=== PATIENT | male | born 1955 | race African-American/Black ===

== ENCOUNTER 2018-05-16 14:33 | Inpatient (IN) | payer OTHER ==
[~2018-05-16] VITALS: Ht 175.3 cm; Wt 65.8 kg
--- NOTE | ~2018-05-16 | HC ---
[facility] [place] [address] CONSULTATION Name: JASON DEISY FERNÁNDEZ Room #: 462-P ADM IN M.R.#: [id number] Admission: 05/16/18 ������������������ Attend Phys: Charles Ruelas MD Discharge: ������������������ Date of : 59 Report #: [id number] THIS REPORT FOR: //name// CC: Kalpesh Ruelas REASON FOR PRESENTATION: Hypotension. HISTORY OF PRESENT ILLNESS: Not able to obtain this from the patient as the patient is in a dai of the [facility]. He does not communicate frequently. He was brought from his dialysis unit yesterday due to loss of consciousness and subsequent fall per the nursing staff. He is a dialysis patient, was maintained on hemodialysis every Monday, Monday and Monday. Details of the events were not really available. He is known to have schizophrenia, hypertension, status post left BKA. He is maintained on dialysis as I stated in the [facility]. I am being consulted to manage his end-stage renal related issues. MEDICATIONS: Listed on his nursing facility papers include: 1. Midodrine. 2. Sevelamer. 3. Aspirin. 4. Hydralazine. 5. Ranitidine. 6. Mirtazapine. 7. Doxazosin. 8. Haldol. ALLERGIES: 1. LISTED PORCINE CONTAINING PRODUCTS. 2. LATEX. 3. AMITRIPTYLINE. SOCIAL HISTORY: Remote history of smoking per the nursing reports. No drug or alcohol abuse. He resides in a nursing facility. He is in a dai of the [facility]. FAMILY HISTORY: Unobtainable given the patient's mental status. REVIEW OF SYSTEMS: Unobtainable given the patient's mental status. PHYSICAL EXAMINATION: VITAL SIGNS: He is a afebrile with a temperature of 36.4, pulse 66, blood pressure is 128/59. GENERAL CONDITION: He is emaciated and cachectic with complete loss of muscle mass and muscle wasting. HEAD AND NECK: No jugular venous distention. CHEST: No crackles. CARDIOVASCULAR: No rub. [facility] [address] [place] [address] CONSULTATION Name: DEISY DENTON Room #: [address] [place] [address] IN M.R.#: [id number] Admission: 05/16/18 ������������������ Attend Phys: Charles Ruelas MD Discharge: ������������������ Date of : 59 Report #: [id number] ABDOMEN: Soft, nontender. LOWER EXTREMITIES: Left below knee amputation. LABORATORY DATA: Reviewed. Hemoglobin is 12.3. Sodium is 136, potassium is 4.6, BUN is 42, creatinine is 5.4. Chest x-ray negative. Head CT, atrophy is present. ASSESSMENT, IMPRESSION AND PLAN: 1. End-stage renal disease. 2. Hypotension after dialysis. 3. Polypharmacy. 4. Schizophrenia. His incident seems to be related to hypotension after dialysis. Discontinue all of his blood pressure medications. Keep on midodrine for now. Dialysis tomorrow. Working on his placement with the social professionals and telehealth case manager. ��������������������������������������������� ���������������������������������������� By: ��������������������������������������������� 0913 [id number] Yosef Bailey MD /michela
[~2018-05-16 14:33] MED LIST: APAP500 PO; ASPIR 8181 MG PO; CARDURA4 MG PO; CARVEDILOL12.5 MG PO; CENTRUM SILVER1 EAC4 PO; CLOTRIMAZOLE 1%15 G1 TOP; DEPAKOTE 250MG250 M1 PO; DIPHENHYDRAM50 MG/M2 IM; FOLIC ACID1 MG PO; HALOPERIDOL5 MG/1 M1 IM; HYDRALAZINE 10M10 MG PO; IRON325 PO; KETOCONAZOLE60 GM TP; NORVASC10 MG PO; RANITIDINE 150150 M1 PO; REMERON15 MG PO; RISAMINE OINTM113 GM TP; RISPERDAL2 MG PO; SILTUSSIN100 MG/5 M PO; VITAMIN A TP; VITAMIN B-12500 MCG PO; [UNRECOGNIZED DRUG - OTHER] TP
[2018-05-16 14:34] VITALS: BP 84/54
[2018-05-16] MEDS ORDERED: MIDODRINE HCL 55 M1 PO (14:43)
[2018-05-16] MEDS ORDERED: RENVELA800 MG PO ×2 (14:44→20:58)
[2018-05-16] MEDS ORDERED: LATUDA20 MG PO ×2 (14:45→20:55)
[2018-05-16] MEDS ORDERED: LIPITOR 20 MG T20 M1 PO (14:46)
--- NOTE | 2018-05-16 17:07 | NUR ---
PUBLIC SERVICED BY DENISE CARROLL, DEPUTY, [facility] PUBLIC ADMINISTRATION OFFICE AT THIS TIME. RECEIVED CONSENT FOR FULL TREATMENTS NEEDED JUDEGED BY EDP AND/OR PHYSICIANS INVOLVED IN PT CARE. CONTACT NUMBER: [phone], ASK FOR A PAGE FOR THE PUBLIC ADMIN OFFICE DEPUTY
[2018-05-16 17:35] LABS: ABSOLUTE NEUTROPHILS 7.8 thou/uL (1.4-8.2); BASOPHILS 0.3 % (0.0-2.0); EOSINOPHILS 0.7 % (0.0-3.0); HEMATOCRIT 38.3 % (42.0-52.0); HEMOGLOBIN 12.3 gm/dL (14.0-18.0); LYMPHOCYTES 6.8 % (24.0-44.0); MCHC 32.1 g/dL (28.0-37.0); MCV 84.2 fL (80.0-100.0); MONOCYTES 8.1 % (1.0-8.0); PLATELET COUNT 185 thou/uL (150-400); POLYS 84.1 % (36.0-66.0); RBC 4.55 mil/uL (4.50-6.00); RDW 15.1 % (10.5-14.5); WBC 9.2 thou/uL (4.0-11.0)
[2018-05-16 17:59] LABS: ANION GAP 9 mmol/L (7-16); BUN 31 mg/dL (7-18); CALCIUM 9.6 mg/dL (8.5-10.1); CHLORIDE 98 mmol/L (98-107); CO2 28 mmol/L (21-32); CREATININE 4.4 mg/dL (0.7-1.3); GLUCOSE 147 mg/dL (74-106); POTASSIUM 3.8 mmol/L (3.5-5.1); SODIUM 135 mmol/L (136-145)
[2018-05-16 18:03] LABS: APTT 23.3 Seconds (24.5-32.8)
[2018-05-16 18:04] LABS: URINE BILIRUBIN NEGATIVE (Negative); URINE BLOOD 3+ (Negative); URINE CLARITY CLEAR; URINE COLOR YELLOW; URINE GLUCOSE-RANDOM* NEGATIVE (Negative); URINE KETONES NEGATIVE (Negative); URINE NITRITE-REFLEX NEGATIVE (Negative); URINE PROTEIN (DIPSTICK) 2+ (Negative); URINE UROBILINOGEN 0.2 E.U./dl (0.2-1.0)
[2018-05-16 18:05] LABS: URINE LEUKOCYTES-REFLEX 2+ (Negative)
[2018-05-16 18:07] LABS: ALBUMIN 3.4 g/dL (3.4-5.0); SGOT 12 U/L (15-37); SGPT 16 U/L (30-65); TOTAL BILIRUBIN 0.2 mg/dL (<0.1-1.0); TOTAL PROTEIN 8.8 g/dL (6.4-8.2); TROPONIN-I <0.06 ng/mL (<0.06)
[2018-05-16 18:15] LABS: SQUAMOUS 0-3 Few /LPF (0-3); URINE RBC >20 Many /HPF (0-2)
[2018-05-16 18:16] LABS: CASTS None Seen /LPF (None Seen); CRYSTALS None Seen /LPF (None Seen)
[2018-05-16 18:17] LABS: TRANSITIONAL EPITHEL CELL 4-10 Moderate /LPF (None Seen); URINE WBC-REFLEX 6-15 Few /HPF (0-5)
[2018-05-16 18:18] LABS: AMORPHOUS URATES Moderate /LPF (None Seen)
[2018-05-16 18:19] LABS: D-DIMER 1.25 ug/mLFEU (0.19-0.50)
[2018-05-16 19:40] VITALS: BP 91/47
[2018-05-16 20:13] VITALS: BP 101/62
[2018-05-16] MEDS ORDERED: RISPERDAL2 MG PO (20:50)
[2018-05-16 20:54] VITALS: BP 120/43
[2018-05-16] MEDS ORDERED: VITAMIN D2000 UNIT PO (20:59)
[2018-05-16] MEDS ORDERED: NORCO 5-325 TA1 EACH PO (21:00)
--- NOTE | 2018-05-16 23:48 | NUR ---
ADMITTED FROM ER UNDER 'S CARE. PHYLICIA CRAVEN COVERING FOR SAW THE PT AT THE BEDSIDE. AXOX2. SLURRED SPEECH FROM PREVIOUS STROKE. NEW IV PUT IN L FA. PT HEMODIALYSIS PT. JAYNE AV FISTULA. POSITIVE BRUIT/THRILL. LBKA HEALED AND OPEN TO AIR. L BUTTOCK SKIN TEAR. SCROTUM REDNESS. PICTURE TAKEN AND BARRIER CREAN APPLIED. R FOOT SEVERE DRYNESS. CREAM APPLIED TO FOOT, TELE MONITOR APPLIED. DRY COUGH NOTED WITHOUT OUTPUT. BP UPON ARRIVAL ON THE UNIT. VSS. BP AT 120 SBP. ROCHEPHINE STARTED PER MD ORDER. 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 PT CAME WITH MONEY IN R SOCK, REFUSED TO SEND THEM TO SECURITY. SAYS IT'S ABOUT 20DOLLARS. WILL TRY TO CONVINCE PT TO SEND MONEY DOWN TO SECURITY. NO S/S ACUTE DISTRESS NOTED OR REPORTED AT THIS TIME. WILL CONT TO MONITOR FOR ANY CHANGES IN CONDITION.
[2018-05-17 04:39] VITALS: BP 128/59
[2018-05-17 06:06] LABS: CALCIUM 9.3 mg/dL (8.5-10.1); POTASSIUM 4.6 mmol/L (3.5-5.1)
[2018-05-17 06:10] LABS: CREATININE 5.4 mg/dL (0.7-1.3)
[2018-05-17 07:46] VITALS: BP 104/45
--- NOTE | 2018-05-17 07:52 | EKG ---
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 : 1955 Requested By: Ashley Pitts Order Number: [id number] MD: Monster Calhoun Measurements Intervals [place] Rate: 72 P: 49 NV: 182 QRS: 61 QRSD: 99 T: 67 QT: 394 QTc: 432 Interpretive Statements Sinus rhythm Left ventricular hypertrophy ST elevation, consider early repolarization Compared to ECG 03/26/2015 12:47:57 No significant change was found Electronically Signed On 05-17-2018 7:52:05 CDT by Monster Calhoun [email or web address] ��������������������������������������������� <ELECTRONICALLY SIGNED> ���������������������������������������� By: Monster Calhoun MD, [facility] ��������������������������������������������� 05/17/18 0752 [id number] Monster Calhoun MD, [facility] /EPI
--- NOTE | 2018-05-17 11:29 | NUR ---
WOUND CONSULT: PT. WAS SEEN FOR SKIN EVAULATION. PT. HAS SIGNIFICANT MOISTURE ASSOCIATED DERMATITIS TO HIS SACRAL/GLUETAL REGION. PT. SKIN IS VERY FRIABLE IN THIS REGION AND UPON CLEANSING AND ASSESMENT PT. SKIN BEGIN TO COME OFF. PT. REPORTS THAT THIS AREA IS VERY PAINFUL DUE TO THE EXCORATION THAT HE HAS AND MOVES AND GRIMACES IN PAIN WITH WOUND CARE. RECOMMENDATIONS: WOUND CARE TO SACRAL/GLUTEAL REGION: GENTLY CLEANSE AREA WITH WARM SOAP AND WATER, APPLY MOISTURE BARRIER CREAM, LEAVE OPEN TO AIR, COMPLETE CARES DAILY AND PRN. NO BRIEFS IN BED ONLY ONE INCONTIENCE PAD IN THE BED TURN Q2 HOURS KEEP PT. OFF WOUND MUCH POSSIBLE PT. AND STAFF NURSE WERE INSTRUCTED ON PLAN OF CARE.
--- NOTE | 2018-05-17 14:54 | NUR ---
PT ADMITTED RELATED TO POST FALL/HYPOTENSION. CM REVIEWED CHART AND SPOKE [facility] CARE TEAM. 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 HE INDICATED THAT HE ANTICIAPTED PT RETURNING TO [facility] ONCE MEDICALLY STABLE. PT IS A DIALYSIS PT AND GOES MWF. PT USES A WHEELCHAIR AT THE FACILITY. CM TO FOLLOW INDICATED WITH DC PLANNING.
[2018-05-17 14:58] VITALS: BP 95/44
--- NOTE | 2018-05-17 16:00 | NUR ---
VSS-AFEBRILE. FLAT AFFECT, OCCASIONALLY ANSWERS QUESTIONS. LUNGS CLEAR/DIMINISHED IN ALL [place]VALLE BILATERALLY. ANURIC, NO BM THIS SHIFT. COMPLIANT WITH TAKING ORAL MEDICATIONS, NO DIFFICULTY SWALLOWING. NO REPORTS OF PAIN. WAS ABLE TO FEED SELF WITH TRAY SET UP. NO REPORTED N/V. CHRIS AREA CLEANSED MULTIPLE TIMES, BARRIER CREAM APPLIED FOR COMFORT.
[2018-05-17 19:35] VITALS: BP 93/41
--- NOTE | 2018-05-18 02:21 | NUR ---
ASSUMED CARE AT 1900. AXOX2. ROCEPHINE COMPLETED. REPOSITION FREQUENT WITH APPLIANCE OF THE BARRIER CREAM. NO S/S ACUTE DISTRESS NOTED OR REPORTED AT THIS TIME. WILL CONT TO MONITOR FOR ANY CHANGES IN CONDITION.
[2018-05-18 04:18] VITALS: BP 140/67
[2018-05-18 08:00] VITALS: BP 124/73
[2018-05-18 15:00] VITALS: BP 133/85
--- NOTE | 2018-05-18 15:39 | NUR ---
DISCHARGE PLANNING. PATIENT RESIDES AT [facility]. PLAN IS FOR PATIENT TO RETURN TO [facility] ONCE MEDICALLY READY. CLINICAL INFORMATION FAXED TO ADAN MCNAMARA DON/BIN CLEANER. WILL FACILITATE DISCHARGE ONCE PATIENT IS MEDIALLY READY AND DISCHARGE ORDERS RECEIVED. FOLLOWING TO ASSIST WITH DC NEEDS.
[2018-05-18] MEDS ORDERED: CEFDINIR300 MG PO (15:43)
--- NOTE | 2018-05-18 16:37 | NUR ---
REC D/C ORDERS, PT HAS NOW RETURNED FROM DIALYSIS, CM ARRANGING RIDE TO [facility]. CALLED TO GIVE REPORT [phone], REC , LEFT NURSES PHONE NUMBER AND PT'S NAME FOR THEM TO CALL FOR REPORT
--- NOTE | 2018-05-18 16:55 | NUR ---
GAVE REPORT TO GABY AT FACILITY AND FAXED PT'S MEDS
== END 2018-05-18 20:13 | DRG 312 ==
LOC: ER 14:33 → EROBS 19:13 → 4W 19:13
PROVIDERS: Nurse Practitioner Family; Physician Assistant; ADMIT Internal Medicine
PROC: 5A1D70Z Performance of Urinary Filtration, Intermittent, Less than 6 Hours Per Day (ICD-10-PCS; principal; 2018-05-18)
DX: I95.3 Hypotension of hemodialysis (principal); N18.6 End stage renal disease; N39.0 Urinary tract infection, site not specified; I12.0 Hypertensive chronic kidney disease with stage 5 chronic kidney disease or end stage renal disease; G93.40 Encephalopathy, unspecified; I69.354 Hemiplegia and hemiparesis following cerebral infarction affecting left non-dominant side; K21.9 Gastro-esophageal reflux disease without esophagitis; F32.9 Major depressive disorder, single episode, unspecified; I95.9 Hypotension, unspecified; F20.9 Schizophrenia, unspecified; E78.5 Hyperlipidemia, unspecified; I73.9 Peripheral vascular disease, unspecified; D63.8 Anemia in other chronic diseases classified elsewhere; E55.9 Vitamin D deficiency, unspecified; E53.8 Deficiency of other specified B group vitamins; Z89.442 Acquired absence of left ankle; Z88.8 Allergy status to other drugs, medicaments and biological substances; Z91.040 Latex allergy status; Z87.891 Personal history of nicotine dependence; I95.1 Orthostatic hypotension
CPT/HCPCS: 10045; 32100

== ENCOUNTER 2019-05-01 17:12 | Emergency (ER) | payer OTHER ==
[~2019-05-01] VITALS: Ht 185.4 cm; Wt 68.0 kg
[~2019-05-01 17:12] MED LIST changes: +CEFDINIR300 MG PO; +LATUDA20 MG PO; +LIPITOR 20 MG T20 M1 PO; +MIDODRINE HCL 55 M1 PO; +NORCO 5-325 TA1 EACH PO; +RENVELA800 MG PO; +VITAMIN D2000 UNIT PO
[2019-05-01 17:14] VITALS: BP 122/77
[2019-05-01 18:24] LABS: HEMOGLOBIN 9.8 gm/dL (14.0-18.0); MCH 24.2 pg (26.0-34.0); MCHC 30.6 g/dL (28.0-37.0); MCV 78.9 fL (80.0-100.0); PLATELET COUNT 363 thou/uL (150-400); RBC 4.06 mil/uL (4.50-6.00); WBC 14.4 thou/uL (4.0-11.0)
[2019-05-01 18:37] LABS: CALCIUM 9.4 mg/dL (8.5-10.1); CREATININE 5.4 mg/dL (0.7-1.3); POTASSIUM 4.7 mmol/L (3.5-5.1)
[2019-05-01 18:43] LABS: ALBUMIN 2.6 g/dL (3.4-5.0); TOTAL BILIRUBIN 0.2 mg/dL (<0.1-1.0); TOTAL PROTEIN 8.5 g/dL (6.4-8.2)
[2019-05-01 19:14] LABS: ABSOLUTE NEUTROPHILS 12.4 thou/uL (1.4-8.2); ANISOCYTOSIS 2+; HYPOCHROMASIA 1+; MICROCYTES 1+
[2019-05-01 21:39] LABS: URINE BILIRUBIN NEGATIVE (Negative); URINE BLOOD 2+ (Negative); URINE CLARITY SL CLOUDY; URINE COLOR YELLOW; URINE GLUCOSE-RANDOM* NEGATIVE (Negative); URINE KETONES NEGATIVE (Negative); URINE NITRITE-REFLEX NEGATIVE (Negative); URINE PROTEIN (DIPSTICK) 2+ (Negative); URINE UROBILINOGEN 0.2 E.U./dl (0.2-1.0)
[2019-05-01 21:54] LABS: URINE LEUKOCYTES-REFLEX 3+ (Negative)
[2019-05-01 22:20] LABS: CASTS None Seen /LPF (None Seen); CRYSTALS None Seen /LPF (None Seen); MUCUS 0-3 Light strn/LPF (None Seen); SQUAMOUS 4-10 Moderate /LPF (0-3); URINE RBC 3-10 Few /HPF (0-2)
[2019-05-01] MEDS ORDERED: KEFLEX500 M1 PO (22:20)
[2019-05-01] MEDS ORDERED: NORCO 5-325 TA1 EAC1 PO (22:20)
== END 2019-05-01 23:39 | disposition home or self-care (01) ==
LOC: ER 17:12
PROVIDERS: Physician Assistant
DX: S42.212A Unspecified displaced fracture of surgical neck of left humerus, initial encounter for closed fracture (principal); I13.11 Hypertensive heart and chronic kidney disease without heart failure, with stage 5 chronic kidney disease, or end stage renal disease; N18.6 End stage renal disease; D64.9 Anemia, unspecified; N39.0 Urinary tract infection, site not specified; K21.9 Gastro-esophageal reflux disease without esophagitis; Z87.891 Personal history of nicotine dependence; Z91.040 Latex allergy status; Z88.8 Allergy status to other drugs, medicaments and biological substances; Z99.2 Dependence on renal dialysis; Z91.018 Allergy to other foods; W06.XXXA Fall from bed, initial encounter; Y93.89 Activity, other specified; Y92.128 Other place in nursing home as the place of occurrence of the external cause; Y99.8 Other external cause status

== ENCOUNTER 2019-05-15 12:27 | Inpatient (IN) | payer OTHER ==
[~2019-05-15] VITALS: Ht 182.9 cm; Wt 65.8 kg
[~2019-05-15 12:27] MED LIST changes: +KEFLEX500 M1 PO; +NORCO 5-325 TA1 EAC1 PO
[2019-05-15 14:57] LABS: HEMATOCRIT 33.9 % (42.0-52.0); HEMOGLOBIN 10.2 gm/dL (14.0-18.0); MCH 24.1 pg (26.0-34.0); MCHC 30.1 g/dL (28.0-37.0); PLATELET COUNT 295 thou/uL (150-400); RBC 4.24 mil/uL (4.50-6.00); RDW 17.7 % (10.5-14.5); WBC 7.4 thou/uL (4.0-11.0)
[2019-05-15 15:02] LABS: URINE BILIRUBIN NEGATIVE (Negative); URINE BLOOD 3+ (Negative); URINE COLOR YELLOW; URINE GLUCOSE-RANDOM* NEGATIVE (Negative); URINE KETONES NEGATIVE (Negative); URINE LEUKOCYTES-REFLEX TRACE (Negative); URINE NITRITE-REFLEX NEGATIVE (Negative); URINE PROTEIN (DIPSTICK) 2+ (Negative); URINE SPECIFIC GRAVITY 1.015 (1.005-1.035); URINE UROBILINOGEN 0.2 E.U./dl (0.2-1.0)
[2019-05-15 15:03] LABS: URINE CLARITY CLOUDY
[2019-05-15 15:05] LABS: SQUAMOUS 0-3 Few /LPF (0-3)
[2019-05-15 15:06] LABS: BACTERIA-REFLEX None Seen /HPF (None Seen); CRYSTALS None Seen /LPF (None Seen); URINE RBC >20 Many /HPF (0-2); URINE WBC-REFLEX None Seen /HPF (0-5)
[2019-05-15 15:07] LABS: CALCIUM 9.4 mg/dL (8.5-10.1); CREATININE 6.2 mg/dL (0.7-1.3); POTASSIUM 4.9 mmol/L (3.5-5.1)
[2019-05-15 15:11] LABS: AMP/METHAMP Negative (Negative); BARBITURATES Negative (Negative); BENZODIAZEPINES Negative (Negative); COCAINE Negative (Negative); METHADONE Negative (Negative); OPIATES POSITIVE (Negative); PCP Negative (Negative)
[2019-05-15 15:13] LABS: ALBUMIN 2.8 g/dL (3.4-5.0); TOTAL BILIRUBIN 0.3 mg/dL (<0.1-1.0); TOTAL PROTEIN 8.3 g/dL (6.4-8.2)
[2019-05-15 15:17] LABS: LIPASE 520 U/L (73-393); MAGNESIUM 2.5 mg/dL (1.8-2.4); TROPONIN-I <0.06 ng/mL (<0.06)
[2019-05-15 15:37] LABS: ABSOLUTE NEUTROPHILS 5.7 thou/uL (1.4-8.2); ANISOCYTOSIS 1+; PLATELET ESTIMATE NORMAL
[2019-05-15 16:24] VITALS: BP 125/83
--- NOTE | 2019-05-15 16:29 | EKG ---
[facility] [place] [place] [address] ELECTROCARDIOGRAM REPORT Name: GOMEZ DEISY FERNÁNDEZ Room #: 170-11 ADM IN M.R.#: [id number] Admission: 05/15/19 Attend Phys: Charles Ruelas MD Discharge: Date of : 59 Report #: [id number] THIS REPORT FOR: cc: Kalpesh Barney MD, Dennis R MD Couchonnal, Luis F. MD ~ THIS REPORT FOR: //name// [facility] ED Test Date: 2019-05-15 Test Time: 13:45:51 Pat Name: DEISY FERNÁNDEZ Department: Room: 170 Gender: M Hand Miter Operator: : 1955 Requested By: Ashley Pitts Order Number: [id number] MD: Gamal Owens Measurements Intervals [place] Rate: 84 P: 51 LA: 167 QRS: 74 QRSD: 107 T: 78 QT: 379 QTc: 449 Interpretive Statements Sinus rhythm Probable left ventricular hypertrophy Minimal ST elevation, inferior leads Baseline wander in lead(s) V1 Compared to ECG 05/16/2018 17:24:37 No significant changes Electronically Signed On 05-15-2019 16:28:12 CDT by Gamal Owens [email or web address] <ELECTRONICALLY SIGNED> By: Gamal Owens MD 05/15/19 1628 1345 1345 Gamal Owens MD /EPI
[2019-05-15 16:42] VITALS: BP 111/81
[2019-05-15 17:15] VITALS: BP 145/44
--- NOTE | 2019-05-15 19:29 | NUR ---
63 YO ADMITTED FROM ED TO RM 357. A&OX2. IV IN L EJ. L ARM IS IS IN A BRACE. WAS ABLE TO TELL ME IT GOT BROKE 2 WEEKS AGO. Polina MARK NOTED. DIALYSIS NURSE TODAY STATED THAT HIS LOC HAS CHANGED LAST 3-4 WEEKS. WAS ABLE TO FEED [place] WITH RIGHT HAND. FISTULA NOTED TO JAYNE. PT IS A POOR HISTORIAN. ORIENTED PT TO CALL LIGHT. BED ALARM IS ON
[2019-05-15 19:40] VITALS: BP 141/111
[2019-05-15 23:55] VITALS: BP 128/86
[2019-05-16 03:40] VITALS: BP 121/75
--- NOTE | 2019-05-16 05:30 | NUR ---
ROUNDED ON PT ON HOURLY BASIS. DURING ASSESSMENT, PT WAS NON VERBAL. TOOK PILL WITH APPLESAUCE AND CAN USE HIS RIGHT HAND TO FEED HIMSELF. PT WAS INCONTINENT X2 URINE OVER SHIFT. PT HAS WOUNDS THAT HAVE HEALED ON TOP OF BOTTOM ON LEFT AND RIGHT SIDE. LEFT BROKE ARM IMMOBILIZED, AND L BKA NO SIGNS OF WOUNDS AND ELEVATED WITH A PILLOW. ORDERED LOW LOSS AIR PUMP DUE TO BEDREST AND INCONTINENCE. VSS AND TELE SHOWS SR.
[2019-05-16 05:34] LABS: ABSOLUTE NEUTROPHILS 4.6 thou/uL (1.4-8.2); BASOPHILS 0.5 % (0.0-2.0); EOSINOPHILS 3.1 % (0.0-3.0); HEMATOCRIT 31.1 % (42.0-52.0); HEMOGLOBIN 9.5 gm/dL (14.0-18.0); LYMPHOCYTES 20.1 % (24.0-44.0); MCHC 30.5 g/dL (28.0-37.0); MCV 78.8 fL (80.0-100.0); MONOCYTES 8.3 % (1.0-8.0); PLATELET COUNT 325 thou/uL (150-400); RBC 3.95 mil/uL (4.50-6.00); RDW 17.7 % (10.5-14.5); WBC 6.7 thou/uL (4.0-11.0)
[2019-05-16 05:58] LABS: ALBUMIN 2.6 g/dL (3.4-5.0); CALCIUM 9.9 mg/dL (8.5-10.1); CREATININE 6.9 mg/dL (0.7-1.3); MAGNESIUM 2.5 mg/dL (1.8-2.4); PHOSPHORUS 5.1 mg/dL (2.5-4.9); POTASSIUM 4.7 mmol/L (3.5-5.1)
[2019-05-16 07:06] VITALS: BP 121/75
--- NOTE | 2019-05-16 14:19 | NUR ---
REC considering adding full Renal diet for diet order. Current diet only restricts Na and K+. K+ WNL at 4.7 today, Phos elevated at 5.1. Do note pt is on phosphate binders.
--- NOTE | 2019-05-16 14:43 | NUR ---
INITIAL ASSESSMENT: Received consult. DALTON reviewed chart and spoke with nursing and attending physician. Pt was admitted from [facility] due to pneumonia. Pt is in droplet isolation for Influenza B. Per chart, pt lives at [facility]. Pt is a dai of the state through [place], [place]. DALTON left voice message for public practice administrator's office ([phone]) to notify of pt's hospitalization. PT with hx of schizophrenia/ESRD/left BKA. Pt goes to diaysis at [facility] on at 0945. DALTON spoke with Leatha at [facility] to confirm pt's dialysis schedule. DALTON spoke with staff at [facility], who states that pt is normally w/c bound. Erik lift is used to transfer pt. Plan is for pt to return to [facility] when medically stable. DALTON is following to assist as needed with discharge planning.
[2019-05-16 15:56] VITALS: BP 166/103
[2019-05-16 19:54] VITALS: BP 148/104
[2019-05-17 03:43] VITALS: BP 139/98
--- NOTE | 2019-05-17 05:56 | NUR ---
PT IS ALERT BUT FLAT, STILL REFUSING TO TALK. HE WILL GIVE A THUMBS UP WHEN ASKED IF HE WANTS YOGURT OR APPLESAUCE. FOLLOWING POC WITH Q2 TURNS AND LOW LOSS AIR MATTRESS IN PLACE. ISOLATION AND FALL PRECAUTIONS BEING FOLLOWED. PT IS SCHEDULED FOR DIALYSIS TODAY 05/16. HOURLY ROUNDING.
[2019-05-17 07:49] VITALS: BP 122/54
--- NOTE | 2019-05-17 08:29 | HC ---
[facility] [place] [address] CONSULTATION Name: DEISY DENTON Room #: 357-P ADM IN M.R.#: [id number] Admission: 05/15/19 Attend Phys: Charles Ruelas MD Discharge: Date of : 59 Report #: [id number] THIS REPORT FOR: cc: Kalpesh Barney MD, Dennis R MD Al-Absi,Yosef Arora MD ~ CC: Kalpesh Ruelas DATE OF SERVICE: 05/16/2019 REASON FOR CONSULTATION: End-stage renal disease. REASON FOR PRESENTATION: Mental status changes. HISTORY OF PRESENT ILLNESS: This is a 63-year-old with past medical history of CVA, schizophrenia, end-stage renal disease, left below knee amputation. He was sent from his dialysis center yesterday because the nurses were concerned that he was not acting right. The patient is tested positive for influenza. He was admitted to further evaluate his mental status. Workup so far had been nonrevealing other than some abnormal CT finding of his adrenal glands and his gastrointestinal system. I was consulted to manage his end-stage renal disease. ALLERGIES: PORCINE CONTAINING PRODUCTS. PAST MEDICAL HISTORY: 1. Schizophrenia. 2. End-stage renal disease. 3. Hypertension. 4. Anemia. PAST SURGICAL HISTORY: Right AV fistula. MEDICATIONS: 1. Renvela. 2. Hydrocodone. 3. Midodrine. 4. Atorvastatin. 5. Depakote. FAMILY HISTORY: Hypertension. SOCIAL HISTORY: Resides in a life care facility. No reported drug or alcohol abuse. REVIEW OF SYSTEMS: [facility] [address] [place] [address] CONSULTATION Name: JASON JOLENEDEISY Room #: 357-P ADM IN M.R.#: [id number] Admission: 05/15/19 Attend Phys: Charles Ruelas MD Discharge: Date of : 59 Report #: [id number] GENERAL: No fever or chills. CARDIOVASCULAR: No chest pain or palpitation. PULMONARY: No cough or hemoptysis. GASTROINTESTINAL: No nausea or vomiting. GENITOURINARY: No frequency, no urgency. NEUROLOGICAL: As per the history of present illness. PHYSICAL EXAMINATION: VITAL SIGNS: Temperature is 37, blood pressure is 121/75. HEAD AND NECK: No jugular venous distention. CHEST: No crackles. CARDIOVASCULAR: Regular with no rub detected. ABDOMEN: Soft and nontender. EXTREMITIES: Lower extremities, left below-knee amputation. LABORATORY DATA: Reviewed. Hemoglobin 9.5. Sodium is 133, BUN is 50, creatinine is 6.9. Lipase is mildly elevated at 520. Chest CT and abdominal CT were reviewed. He had what seems to be a large left adrenal mass. ASSESSMENT, IMPRESSION, AND PLAN: 1. End-stage renal disease. 2. Influenza B. 3. Acute mental status changes per his nursing facility, resolved. 4. Adrenal mass. 5. We will continue to support the patient with hemodialysis every Monday, Monday and Monday. 6. Treatment for his influenza. 7. Other care aspects are being handled by the primary team. <ELECTRONICALLY SIGNED> By: Yosef Bailey MD 05/17/19 0829 0713 0750 Yosef Bailey MD /nt
--- NOTE | 2019-05-17 15:31 | NUR ---
DALTON reviewed chart and spoke with nursing and attending physician. Pt may be ready for discharge back to [facility] over the weekend. DALTON spoke with Mariam at [facility] to notify of possible weekend discharge. Prem states they are able to accept pt over the weekend. DALTON spoke with Renata at [facility] Public Hand Printed Circuit Board Assembler's Office to notify of discharge. Consent for discharge provided. DALTON contacted [facility] to notify [facility] that pt may resume regular outpatient dialysis on Monday. Multiple attempts to contact [facility] were unsuccessful. Final discharge orders/summary will need to be faxed to [facility] and [facility] when available. [facility] can be scheduled when pt is ready for discharge. DALTON is available to assist should needs arise. [facility]-- (facility) [phone] (Mariam) [facility]--
[2019-05-17 15:42] VITALS: BP 138/97
[2019-05-17 18:54] VITALS: BP 119/103
[2019-05-18 04:20] VITALS: BP 127/88
--- NOTE | 2019-05-18 05:13 | NUR ---
Pt was nonverbal during this shift, pt only expresses himself via nodding or pointing. Pt was receptive on receiving medication and was cooperative throughout treatment. Pt turned Q2H but patient leans towards the R side continuously, this raises concerns for skin breakdown. Pt passed urine and BM this evening. Pt in low air loss machine hooked up and alternating pressure on sides. Will continue to monitor and administer appropriate medication.
[2019-05-18 08:34] VITALS: BP 100/67
[2019-05-18 15:34] VITALS: BP 95/52
[2019-05-18 20:45] VITALS: BP 118/79
[2019-05-19 04:24] VITALS: BP 116/75
[2019-05-19 05:15] LABS: HEMATOCRIT 31.2 % (42.0-52.0); HEMOGLOBIN 9.5 gm/dL (14.0-18.0); MCH 23.9 pg (26.0-34.0); MCHC 30.3 g/dL (28.0-37.0); RBC 3.96 mil/uL (4.50-6.00); RDW 17.7 % (10.5-14.5); WBC 7.4 thou/uL (4.0-11.0)
[2019-05-19 05:31] LABS: CALCIUM 10.2 mg/dL (8.5-10.1); CREATININE 6.6 mg/dL (0.7-1.3); POTASSIUM 5.8 mmol/L (3.5-5.1)
[2019-05-19 07:34] VITALS: BP 88/14
--- NOTE | 2019-05-19 10:29 | NUR ---
VASCULAR ACCESS NURSE CONSULTED TO REPLACE EJ. SPOKE TO NANCY FELIX AND AND HE SUGGESTED TO WAIT UNTIL HE CONFIRMS THIS WITH THE MD IT MAY NOT BE NECESSARY- WILL RETURN TO PLACE A NEW EJ IF NECESSARY, ON HOLD AT THIS TIME
[2019-05-19 15:28] VITALS: BP 138/97
--- NOTE | 2019-05-19 18:44 | NUR ---
CONT TO REST IN BED AT THIS TIME. RESPIRATIONS ARE NON LABORED.INCONT OF BOWEL AN BLADDER. KEPT CLEAN AND DRY. POSSIBLY DISCHARGED IN AM. WILL CONT WIHT PLAN OF CARE.
--- NOTE | 2019-05-19 18:45 | NUR ---
SPOKE WITH DR MARSHALL ABOUT IV. STATES HE IS GOING TO CHANGE IV ABT TO PO.
[2019-05-19 19:30] VITALS: BP 99/57
[2019-05-20 02:53] VITALS: BP 111/80
--- NOTE | 2019-05-20 03:45 | NUR ---
Patient making progress towards outcome goals. Oxygenation optimal on room air. Vital signs and rhythm stable. Antibiotics changed to oral. Discharge plans todays to [facility] after dialysis. High fall risks, fall precautions in place.
[2019-05-20 07:37] VITALS: BP 112/65
[2019-05-20] MEDS ORDERED: IPRAT-ALBUT 0.5-3 ML INH (10:38)
[2019-05-20] MEDS ORDERED: ACETAMINOPHEN325 M1 PO (10:38)
[2019-05-20] MEDS ORDERED: MIRALAX17 GM PO (10:38)
[2019-05-20] MEDS ORDERED: LEVAQUIN 750 M750 MG PO (10:38)
[2019-05-20] MEDS ORDERED: MUCINEX600 MG PO (10:38)
[2019-05-20] MEDS ORDERED: TAMIFLU30 MG PO (10:38)
[2019-05-20] MEDS ORDERED: PULMICORT0.5 MG/21 INH (10:38)
--- NOTE | 2019-05-20 11:44 | NUR ---
Assumed pt care at 7am.Pt in bed resting without c/o. Assessment completed. Vss.Pt fed at breakfast and tolerated meds.No choking noted.Dr Ruelas here,dc order noted.Pt will dc to [facility] after hemodialysis today.Chart compy and transport to be arranged by case filler.Pt still in droplet isolation. Will continue to monitor.
--- NOTE | 2019-05-20 14:35 | NUR ---
DISCHARGE NOTE: DALTON reviewed chart and spoke with nursing and attending physician. Pt is medically stable to discharge back to [facility] today after dialysis. DALTON faxed finalized discharge orders to [facility], [facility] and [facility] office for review. Pt having dialysis now. DALTON arranged stretcher [place] transportataion for 2023-2029 through [facility]. Director of Case Mgmt approved transportation. DALTON spoke with Ari Lamar at the ID office, who gave consent for discharge. DALTON spoke with Vanda at [facility] to notify of discharge time. [facility] confirms they are able to accept pt. Nursing report to be called to [facility]. DALTON spoke with [facility] staff to inform that pt will resume his regular outpatient dialysis on , 05/21. Chart copy requested. Nursing provided with number to call report. No additional SW needs identified at this time, but is available to assist should needs arise.
[2019-05-20 15:51] VITALS: BP 103/65
== END 2019-05-20 18:33 | DRG 177 ==
LOC: ER 12:27 → EROBS 15:51 → 3W 16:58
PROVIDERS: Emergency Medicine; Nurse Practitioner; Physician Assistant; ADMIT Internal Medicine
PROC: 5A1D70Z Performance of Urinary Filtration, Intermittent, Less than 6 Hours Per Day (ICD-10-PCS; principal; 2019-05-17)
PROC: 5A1D70Z Performance of Urinary Filtration, Intermittent, Less than 6 Hours Per Day (ICD-10-PCS; 2019-05-20)
DX: J10.01 Influenza due to other identified influenza virus with the same other identified influenza virus pneumonia (principal); N18.6 End stage renal disease; J15.8 Pneumonia due to other specified bacteria; I69.354 Hemiplegia and hemiparesis following cerebral infarction affecting left non-dominant side; I12.0 Hypertensive chronic kidney disease with stage 5 chronic kidney disease or end stage renal disease; J98.11 Atelectasis; G93.40 Encephalopathy, unspecified; F32.9 Major depressive disorder, single episode, unspecified; F20.9 Schizophrenia, unspecified; I73.9 Peripheral vascular disease, unspecified; E78.5 Hyperlipidemia, unspecified; I95.1 Orthostatic hypotension; K59.00 Constipation, unspecified; E27.9 Disorder of adrenal gland, unspecified; K21.9 Gastro-esophageal reflux disease without esophagitis; Z87.891 Personal history of nicotine dependence; Z89.442 Acquired absence of left ankle; Z91.040 Latex allergy status; Z88.8 Allergy status to other drugs, medicaments and biological substances; Z91.09 Other allergy status, other than to drugs and biological substances; Z99.2 Dependence on renal dialysis; Z79.899 Other long term (current) drug therapy
CPT/HCPCS: 10879; 32100

== ENCOUNTER 2020-02-01 13:52 | Emergency (ER) | payer OTHER ==
[~2020-02-01] VITALS: Ht 175.3 cm; Wt 54.4 kg
[~2020-02-01 13:52] MED LIST changes: +ACETAMINOPHEN325 M1 PO; +IPRAT-ALBUT 0.5-3 ML INH; +LEVAQUIN 750 M750 MG PO; +MIRALAX17 GM PO; +MUCINEX600 MG PO; +PULMICORT0.5 MG/21 INH; +TAMIFLU30 MG PO
[2020-02-01 16:21] VITALS: BP 118/59
== END 2020-02-01 18:23 ==
LOC: ER 13:52
DX: S20.212A Contusion of left front wall of thorax, initial encounter (principal); K21.9 Gastro-esophageal reflux disease without esophagitis; I12.0 Hypertensive chronic kidney disease with stage 5 chronic kidney disease or end stage renal disease; N18.6 End stage renal disease; Z79.899 Other long term (current) drug therapy; Z87.891 Personal history of nicotine dependence; Z88.8 Allergy status to other drugs, medicaments and biological substances; Z91.040 Latex allergy status; Z91.013 Allergy to seafood; W22.8XXA Striking against or struck by other objects, initial encounter; Y93.89 Activity, other specified; Y92.89 Other specified places as the place of occurrence of the external cause; Y99.8 Other external cause status